=== PATIENT | male | born 1985 | race Caucasian/White ===

== ENCOUNTER 2017-10-11 18:28 | Emergency (ER) | payer OTHER ==
[2017-10-11 18:44] VITALS: BP 148/87; PULSE 80; TEMP 97.8; BMI 45.8
--- NOTE | 2017-10-11 18:56 | PDOC ---
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 Patient states he has been noncompliant with his Synthroid medication 1 month due to health insurance reasons. Timing/Duration: reports: other (x2d) Past History - Past Medical History Allergies/Adverse Reactions: Allergies Allergy/AdvReac Type Severity Reaction Status Date / Time No Known Allergies Allergy Verified 10/11/17 18:41 Home Medications: Ambulatory Orders NK [No Known Home Medication] 10/11/17 COPD: No HTN: Yes (border line) Thyroid Disease: Yes - Surgical History Appendectomy: Yes - Suicide/Smoking/Psychosocial Hx Smoking History: Never smoked Have you smoked in the past 12 months: No Information on smoking cessation initiated: No Hx Alcohol Use: No Drug/Substance Use Hx: No Substance Use Type: None Review of Systems - Review of Systems Able to Perform ROS?: Yes Comments:: 10/11/17 19:01 CONSTITUTIONAL: +generalized malaise Absent: fever, chills, diaphoresis, malaise, loss of appetite HEENT: Absent: rhinorrhea, nasal congestion, throat pain, throat swelling, difficulty swallowing, mouth swelling, ear pain, eye pain, visual Changes CARDIOVASCULAR: Absent: chest pain, loss of consciousness, palpitations, irregular heart rate, peripheral edema RESPIRATORY: Absent: cough, shortness of breath, dyspnea with exertion, orthopnea, wheezing, stridor, hemoptysis GASTROINTESTINAL: Absent: abdominal pain, abdominal distension, nausea, vomiting, diarrhea, constipation, melena, hematochezia GENITOURINARY: Absent: dysuria, frequency, urgency, hesitancy, hematuria, flank pain, genital pain MUSCULOSKELETAL: Absent: myalgia, arthralgia, joint swelling SKIN: Absent: rash, itching, pallor HEMATOLOGIC/IMMUNOLOGIC: Absent: easy bleeding, easy bruising, lymphadenopathy, frequent infections ENDOCRINE: Absent: unexplained weight gain, unexplained weight loss, heat intolerance, cold intolerance NEUROLOGIC: Absent: headache, focal weakness or paresthesias, dizziness, unsteady gait, seizure, mental status changes, bladder or bowel incontinence Is the patient limited Marshallese proficient: No *Physical Exam - Vital Signs Last Vital Signs Temp Pulse Resp BP Pulse Ox 97.8 F 80 18 148/87 100 10/11/17 18:41 10/11/17 18:41 10/11/17 18:41 10/11/17 18:41 10/11/17 18:41 - Physical Exam Comments: 10/11/17 19:01 GENERAL: Well developed, well nourished. Awake and alert. No acute distress. HEENT: Normocephalic, atraumatic. PERRLA, EOMI. No conjunctival pallor. Sclera are non- icteric. Moist mucous membranes. Oropharynx is clear. NECK: Supple. Full ROM. No JVD. Carotid pulses 2+ and symmetric, without bruits. No thyromegaly. No lymphadenopathy. CARDIOVASCULAR: Regular rate and rhythm. No murmurs, rubs, or gallops. Distal pulses are 2+ and symmetric. PULMONARY: No evidence of respiratory distress. Lungs clear to auscultation bilaterally. No wheezing, rales or rhonchi. ABDOMINAL: Soft. Non-tender. Non-distended. No rebound or guarding. No organomegaly. Normoactive bowel sounds. MUSCULOSKELETAL Normal range of motion at all joints. No bony deformities or tenderness. No CVA tenderness. EXTREMITIES: No cyanosis. No clubbing. No edema. No calf tenderness. SKIN: Warm and dry. Normal capillary refill. No rashes. No jaundice. NEUROLOGICAL: Alert, awake, appropriate. Cranial nerves 2-12 intact. No deficits to light touch and temperature in face, upper extremities and lower extremities. No motor deficits in the in face, upper extremities and lower extremities. Normoreflexic in the upper and lower extremities. Normal speech. Toes are down- going bilaterally. Gait is normal without ataxia. PSYCHIATRIC: Cooperative. Good eye contact. Appropriate mood and affect. Progress Note - Progress Note Progress Note: 2041hrs: Called Dr. Elder Zhou/equipment installer.[phone] 8hrs: called Dr. Zhou/equipment installer Dr. Mcgill covering/ states give pt synthroid 200mcg daily. Repeat labs in 4 weeks Medical Decision Making - Medical Decision Making 10/11/17 20:30 32 yo c/o body aches. Tested + for Influenze B. Symptoms x3d. Supportive care. *DC/Admit/Observation/Transfer Diagnosis at time of Disposition: Cough, Influenza B Hypothyroidism Qualifiers: Hypothyroidism type: other Qualified Code(s): E03.8 - Other specified hypothyroidism - Discharge Dispostion Condition at time of disposition: Stable Admit: No - Referrals Referrals: Elder Zhou MD [Staff Physician] - Evan Wisdom MD [Staff Physician] - - Patient Instructions Printed Discharge Instructions: DI for Influenza -- Adult Additional Instructions: Rest Tylenol alternating with Motrin as needed for fever Increase fluids Follow up with your physician in 48 hours Follow up with equipment installer Return to the ER for severe/persistent/worsening symptoms YOUR TSH IS 106.0, YOU MUST FOLLOW UP WITH THE MUSHROOM SORTER GRADER/DR. ZHOU [phone] You have been prescribed Synthroid 200mcg 1 tablet daily. YOU MUST HAVE YOUR BLOOD WORK REPEATED IN 4 WEEKS - Post Discharge Activity Forms/Work/School Notes: Back to Work
--- NOTE | 2017-10-11 18:57 | PDOC ---
Rapid Medical Evaluation Chief Complaint: Cold Symptoms Time Seen by Provider: 10/11/17 18:48 Medical Evaluation: Allergies Allergy/AdvReac Type Severity Reaction Status Date / Time No Known Allergies Allergy Verified 10/11/17 18:41 Vital Signs Temp Pulse Resp BP Pulse Ox 97.8 F 80 18 148/87 100 10/11/17 18:41 10/11/17 18:41 10/11/17 18:41 10/11/17 18:41 10/11/17 18:41 10/11/17 18:55 Pt presents to the ED: cough, nasal congestion, myalgia Pt on exam: vss, cough Pt ordered for: influenza Pt to proced to the ED Discharge Disposition - Diagnosis Cough - Referrals - Patient Instructions - Post Discharge Activity
[2017-10-11 20:20] LABS: THYROXINE (T4) 1.1 ug/dl (4.5-12.1)
[2017-10-11] MEDS ORDERED: LEVOTHYROXINE NA 200 MCG TABLET PO ONE (21:18)
== END 2017-10-11 21:38 | disposition home or self-care (01) ==
LOC: JERFT 18:28
DX: J10.1 Influenza due to other identified influenza virus with other respiratory manifestations (principal); E03.8 Other specified hypothyroidism
CPT/HCPCS: 36415; 84436; 84443; 87804; 99281-25

== ENCOUNTER 2018-01-13 00:57 | Emergency (ER) | payer OTHER ==
[2018-01-13 02:14] VITALS: BP 150/90; PULSE 96; TEMP 98.3; BMI 46.0
--- NOTE | 2018-01-13 02:35 | PDOC ---
History of Present Illness - General Chief Complaint: Wound Stated Complaint: ABSCESS Time Seen by Provider: 01/13/18 02:31 - History of Present Illness Initial Comments: 01/13/18 03:08 32 year old male with right upper thigh redness swelling and pain. unsure of bug bite to the site. no fluctuant mass noted. denies fever/ chills. no streaking noted. Past History - Past Medical History Allergies/Adverse Reactions: Allergies Allergy/AdvReac Type Severity Reaction Status Date / Time No Known Allergies Allergy Verified 01/13/18 02:05 Home Medications: Ambulatory Orders Levothyroxine Sodium [Synthroid] 200 mcg PO DAILY #30 tablet 10/11/17 Cephalexin Monohydrate [Keflex -] 500 mg PO Q8H #30 capsule 01/13/18 Sulfamethoxazole/Trimethoprim [Bactrim Ds -] 1 tab PO BID #20 tablet 01/13/18 COPD: No HTN: Yes (border line) Thyroid Disease: Yes (hypo) - Surgical History Appendectomy: Yes - Suicide/Smoking/Psychosocial Hx Smoking History: Never smoked Have you smoked in the past 12 months: No Hx Alcohol Use: No Drug/Substance Use Hx: No Substance Use Type: None Review of Systems - Review of Systems Able to Perform ROS?: Yes Is the patient limited Croatian proficient: No Constitutional: No: Symptoms Reported, See HPI, Chills, Diaphoresis, Fever, Loss of Appetite, Malaise, Night Sweats, Weakness, Weight Stable, Unintentional Wgt. Loss, Unexplained wgt Loss, Other Integumentary: Yes: Erythema *Physical Exam - Vital Signs Last Vital Signs Temp Pulse Resp BP Pulse Ox 98.3 F 96 H 20 150/90 97 01/13/18 02:04 01/13/18 02:04 01/13/18 02:04 01/13/18 02:04 01/13/18 02:04 - Physical Exam General Appearance: Yes: Appropriately Dressed Extremity: positive: Swelling, Erythema, Other (right thigh erythema, tenderness , warm to touch no streaking noted. no Lymphadenopathy) *DC/Admit/Observation/Transfer Diagnosis at time of Disposition: Cellulitis and abscess of right leg - Discharge Dispostion Disposition: HOME - Prescriptions Prescriptions: Cephalexin Monohydrate [Keflex -] 500 mg PO Q8H #30 capsule Sulfamethoxazole/Trimethoprim [Bactrim Ds -] 1 tab PO BID #20 tablet - Referrals Referrals: Alen Sow MD [Primary Care Provider] - - Patient Instructions Printed Discharge Instructions: DI for Wound Infection Additional Instructions: apply warm compress to the Area take Cephalexin and Bactrim as prescribed, follow up with your doctor as soon as possible. - Post Discharge Activity Forms/Work/School Notes: Back to Work
[2018-01-13] MEDS ORDERED: SULFAMETHOXAZOLE/TRIMETHOPRIM 800MG/160MG D.S. TABLET PO ONE (02:49)
[2018-01-13] MEDS ORDERED: CEPHALEXIN MONOHYDRATE 500 MG CAPSULE (UD) PO ONE (02:49)
[2018-01-13] MEDS ORDERED: CEPHALEXIN MONOHYDRATE 250 MG CAPSULE (FP) ONE (03:17)
[2018-01-13] MEDS ORDERED: SULFAMETHOXAZOLE/TRIMETHOPRIM 800MG/160MG D.S. TABLET ONE (03:17)
== END 2018-01-13 03:29 | disposition home or self-care (01) ==
LOC: JER 00:57
DX: L03.115 Cellulitis of right lower limb (principal); I10 Essential (primary) hypertension; E03.9 Hypothyroidism, unspecified
CPT/HCPCS: 99282-25

== ENCOUNTER 2018-01-16 20:24 | Emergency (ER) | payer OTHER ==
[2018-01-16 20:35] VITALS: BP 181/111; PULSE 88; TEMP 98.1; BMI 50.3
--- NOTE | 2018-01-16 20:36 | PDOC ---
Rapid Medical Evaluation Chief Complaint: Wound Time Seen by Provider: 01/16/18 20:31 Medical Evaluation: Allergies Allergy/AdvReac Type Severity Reaction Status Date / Time No Known Allergies Allergy Verified 01/16/18 20:32 01/16/18 20:35 The patient presents with a chief complaint of: abscess I have performed a brief in-person evaluation of this patient. Pertinent physical exam findings: vss, stable I have ordered the following: percocet The patient will proceed to the ED for further evaluation. Discharge Disposition - Referrals Referrals: Alen Sow MD [Primary Care Provider] - - Patient Instructions - Post Discharge Activity
[2018-01-16] MEDS ORDERED: LIDOCAINE HCL 1%, 10 MG/ML (20ML VIAL) ONE (22:04)
--- NOTE | 2018-01-16 22:28 | PDOC ---
History of Present Illness - General Chief Complaint: Wound Stated Complaint: CELLULITIS Time Seen by Provider: 01/16/18 20:31 History Source: Patient Exam Limitations: No Limitations - History of Present Illness Initial Comments: 01/16/18 22:22 This is a 32-year-old male with past medical history of thyroid CA and hypothyroidism who presents to the emergency department with right posterior thigh cellulitis and abscess. Patient was seen and evaluated here on January 13 and was prescribed Keflex and Bactrim for the cellulitis. He states the redness has improved but had a noticed there was some drainage from the site. He days denies any fevers, chills, redness or streaking to the area. Past History - Past Medical History Allergies/Adverse Reactions: Allergies Allergy/AdvReac Type Severity Reaction Status Date / Time No Known Allergies Allergy Verified 01/16/18 20:32 Home Medications: Ambulatory Orders Levothyroxine Sodium [Synthroid] 200 mcg PO DAILY #30 tablet 10/11/17 Cephalexin Monohydrate [Keflex -] 500 mg PO Q8H #30 capsule 01/13/18 Sulfamethoxazole/Trimethoprim [Bactrim Ds -] 1 tab PO BID #20 tablet 01/13/18 COPD: No HTN: Yes (border line) Thyroid Disease: Yes - Surgical History Appendectomy: Yes - Suicide/Smoking/Psychosocial Hx Smoking History: Never smoked Have you smoked in the past 12 months: No Hx Alcohol Use: No Drug/Substance Use Hx: No Substance Use Type: None Review of Systems - Review of Systems Able to Perform ROS?: Yes Is the patient limited Libyan proficient: No Constitutional: No: Symptoms Reported HEENTM: No: Symptoms Reported Respiratory: No: Symptoms reported Cardiac (ROS): No: Symptoms Reported ABD/GI: No: Symptoms Reported : No: Symptoms Reported Musculoskeletal: No: Symptoms Reported Integumentary: Yes: Symptoms Reported Neurological: No: Symptoms reported *Physical Exam - Vital Signs Last Vital Signs Temp Pulse Resp BP Pulse Ox 98.1 F 88 18 181/111 99 01/16/18 20:32 01/16/18 20:32 01/16/18 20:32 01/16/18 20:32 01/16/18 20:32 - Physical Exam General Appearance: Yes: Appropriately Dressed. No: Apparent Distress HEENT: positive: Normal ENT Inspection Neck: positive: Trachea midline, Supple Respiratory/Chest: positive: Lungs Clear, Normal Breath Sounds. negative: Respiratory Distress, Accessory Muscle Use Cardiovascular: positive: Regular Rhythm, Regular Rate. negative: Murmur Gastrointestinal/Abdominal: positive: Normal Bowel Sounds, Soft, Other (obese). negative: Tender Musculoskeletal: positive: Normal Inspection. negative: CVA Tenderness Extremity: positive: Erythema ([id number] ovoid area ofma noted to the superior posterior right thigh) Integumentary: positive: Erythema ([id number] ovoid area of erythema noted to the superior posterior right thigh. no fluctuance present.) Neurologic: positive: Alert, Normal Response Medical Decision Making - Medical Decision Making 01/16/18 22:25 A/P: 32-year-old male with history of very cancer and hypothyroidism with saline recent abscess to posterior right thigh 15 cm x 8 cm ovoid area of erythema to the superior aspect of the posterior thigh. No fluctuance present. Circular area present with green-colored lesion towards the center Able to express minimal amounts of pus from area. Cellulitis of thigh Culture wound drainage Skin marker used to outline area of erythema Patient instructed to return to emergency Department in 2 days for reevaluation of cellulitis and abscess Patient instructed to return to emergency room for any signs of systemic infection Continue current antibiotics and pain management regimen *DC/Admit/Observation/Transfer Diagnosis at time of Disposition: Cellulitis and abscess of right leg - Discharge Dispostion Disposition: HOME Condition at time of disposition: Stable Admit: No - Referrals Referrals: Alen Sow MD [Primary Care Provider] - - Patient Instructions Printed Discharge Instructions: DI for Wound Infection Additional Instructions: Continue applying warm compresses to affected area. Continue taking previously prescribed antibiotics. A wound culture was collected. We will have results within 2 days. Please follow-up in this emergency Department in 2 days for reevaluation of your won't Take Tylenol or Motrin as needed for fever and/or pain. Follow manufacturers instructions for appropriate dosage. - Post Discharge Activity
== END 2018-01-16 22:23 | disposition home or self-care (01) ==
LOC: JERFT 20:24
PROC: 0J9L0ZZ Drainage of Right Upper Leg Subcutaneous Tissue and Fascia, Open Approach (ICD-10-PCS; principal; 2018-01-16)
DX: L03.115 Cellulitis of right lower limb (principal); Z85.850 Personal history of malignant neoplasm of thyroid; E89.0 Postprocedural hypothyroidism
CPT/HCPCS: 10060; 87070; 87186; 87205; 99281-25

== ENCOUNTER 2018-01-18 19:15 | Emergency (ER) | payer OTHER ==
--- NOTE | 2018-01-18 19:22 | PDOC ---
Rapid Medical Evaluation Time Seen by Provider: 01/18/18 19:21 Medical Evaluation: Allergies Allergy/AdvReac Type Severity Reaction Status Date / Time No Known Allergies Allergy Verified 01/16/18 20:32 I have performed a brief in-person evaluation of this patient. The patient presents with a chief complaint of: wound check Pertinent physical exam findings: right posterior thigh wound. patient looks well. No fever I have ordered the following: nothing. The patient will proceed to the ED for further evaluation.
[2018-01-18 19:25] VITALS: BP 150/90; PULSE 76; TEMP 98.7; BMI 45.1
--- NOTE | 2018-01-18 19:55 | PDOC ---
Suture Removal/Wound Check HPI - History of Present Illness Chief Complaint: Revisit,Wound Recheck Stated Complaint: REEVALUATION Time Seen by Provider: 01/18/18 19:21 History Source: Yes: Patient Exam Limitations: Yes: No Limitations [place] [facility] [place] [facility] [place] ED Treatment Type of procedure performed on last visit: Yes: I&D of Abscess Past History - Travel Traveled outside of the country in the last 30 days: No Close contact w/someone who was outside of country & ill: No - Past Medical History Allergies/Adverse Reactions: Allergies Allergy/AdvReac Type Severity Reaction Status Date / Time No Known Allergies Allergy Verified 01/16/18 20:32 Home Medications: Ambulatory Orders Levothyroxine Sodium [Synthroid] 200 mcg PO DAILY #30 tablet 10/11/17 Mupirocin Ointment [Bactroban 2% Ointment -] 1 applic TP BID #1 tube 01/18/18 COPD: No HTN: Yes (border line) Thyroid Disease: Yes - Surgical History Appendectomy: Yes - Suicide/Smoking/Psychosocial Hx Smoking History: Never smoked Have you smoked in the past 12 months: No Hx Alcohol Use: No Drug/Substance Use Hx: No Substance Use Type: None Suture Removal/Wound Check PE - Physical Exam Laceration/Wound Check Symptoms: reports: Redness, Improved (Redness is significantly diminished from the previously marked area. Patient now with approximately 5 x 4 cm ovoid erythema. Dry skin also surrounds the area of erythema. There is a center approximately 1 cm around in the center of the ovoid erythema open and draining at this time.) Current Severity Level: Mild Location of Laceration/Wound: right: Thigh (posterior thigh) *Review of Systems - Review of Systems Constitutional: No: Chills, Fever, Weakness ABD/GI: No: Diarrhea, Nausea, Vomiting Integumentary: Yes: Dryness (R posterior upper leg), Erythema (R posterior upper leg), Pruritus (R posterior upper leg), Other (drainage from the R upper posterior leg.) Medical Decision Making - Medical Decision Making 01/18/18 22:56 Patient is a 32-year-old male who presents the emergency department today for a wound check of his abscess. Patient is currently taking Bactrim and Keflex with results. The cellulitis is massively improved since last visit now measuring approximately 5 x 4 cm in ovoid shape. The center of the ovoid shape is still open and draining. Tender to the touch however pain is much improved. The ovoid area red and chapped. We'll prescribe mupirocin at this time to prevent infection and to soothe the dry skin. Patient has a follow-up with his primary care doctor tomorrow which he is instructed to keep. Return precautions given. Patient understands all discharge instructions and all questions were answered. *DC/Admit/Observation/Transfer Diagnosis at time of Disposition: Cellulitis and abscess of right leg - Discharge Dispostion Disposition: HOME Condition at time of disposition: Stable Admit: No - Prescriptions Prescriptions: Mupirocin Ointment [Bactroban 2% Ointment -] 1 applic TP BID #1 tube - Referrals Referrals: Alen Sow MD [Primary Care Provider] - - Patient Instructions Printed Discharge Instructions: DI for Wound Infection Additional Instructions: You have cellulitis. This is a skin infection. The infection is much improved since your visit on 01/16/18. Please continue to take the Bactrim and Keflex twice a day for one week. Please take all the antibiotics even if you feel better. Apply the mupirocin to the chapped area of skin. Avoid putting it on the open draining area. You may use warm water soaks to the area. Please do this approximately 4-5 times a day. Please avoid shaving the skin around the area of redness. You may take Tylenol or Motrin as needed for pain. Please follow up with your primary care doctor tomorrow as scheduled Return to the emergency department if you have worsening redness, fevers, increasing pain, or have any changes in your symptoms. - Post Discharge Activity
== END 2018-01-18 20:24 | disposition home or self-care (01) ==
LOC: JERFT 19:15
DX: Z48.01 Encounter for change or removal of surgical wound dressing (principal)
CPT/HCPCS: 99281-25

== ENCOUNTER 2018-05-06 17:42 | Emergency (ER) | payer OTHER ==
[2018-05-06 18:02] VITALS: TEMP 98.4; BMI 200.1
--- NOTE | 2018-05-06 19:27 | PDOC ---
History of Present Illness - General Chief Complaint: Blood Sugar Problem Stated Complaint: BLOOD PRESSURE - History of Present Illness Initial Comments: 33 year old male with PMH of HTN (currently unmedicated) and hypothyroidism presenting with bilateral infrapectoral chest pain, lightheadedness,a nd elevated blood pressures for the past week. States that he had HTN a few years prior but eventually discontinued his medication because of pressure normalization after some weight loss. He admits to some infrapectoral chest pain on Tuesday that came on while sitting and was a non-pleuritic, non- exertional, non-radiating pressure, that did not co-present with nausea, vomiting, diarrhea, constipation, headache, SOB, or other symptoms. His pressures over the past week have been in the 170s. He has had occasional lightheadedness while working particularly when lifting boxes. Denies SOB, nausea, vomiting, diarrhea, headache, FND, visual symptoms or other issues. 05/06/18 20:48 Past History - Past Medical History Allergies/Adverse Reactions: Allergies Allergy/AdvReac Type Severity Reaction Status Date / Time No Known Allergies Allergy Verified 01/16/18 20:32 Home Medications: Ambulatory Orders Levothyroxine [Synthroid -] 250 mcg PO DAILY 05/06/18 COPD: No Diabetes: Yes HTN: Yes Thyroid Disease: Yes - Surgical History Appendectomy: Yes - Suicide/Smoking/Psychosocial Hx Smoking History: Never smoked Have you smoked in the past 12 months: No Information on smoking cessation initiated: No Hx Alcohol Use: No Drug/Substance Use Hx: No Substance Use Type: None Review of Systems - Review of Systems Constitutional: No: Chills, Diaphoresis, Fever, Loss of Appetite HEENTM: No: Blurred Vision Respiratory: No: Orthopnea, Shortness of Breath Cardiac (ROS): Yes: Chest Pain, Lightheadedness, Chest Tightness. No: Edema, Irregular Heart Rate, Palpitations, Syncope ABD/GI: No: Diarrhea, Nausea, Poor Fluid Intake, Vomiting : No: Burning, Dysuria, Discharge, Frequency Integumentary: No: Bruising, Change in Color, Change in Hair/Nails, Lesions Neurological: No: Headache, Numbness Psychiatric: No: Anxiety, Depression Hematologic/Lymphatic: No: Anemia, Blood Clots *Physical Exam - Vital Signs Last Vital Signs Temp Pulse Resp BP Pulse Ox 98.4 F 82 18 160/98 100 05/06/18 17:59 05/06/18 17:59 05/06/18 17:59 05/06/18 17:59 05/06/18 17:59 - Physical Exam General Appearance: Yes: Nourished, Appropriately Dressed. No: Apparent Distress HEENT: positive: EOMI, DIANNE, Normal ENT Inspection, Normal Voice Neck: positive: Trachea midline, Normal Thyroid, Supple. negative: Tender, Rigid Respiratory/Chest: positive: Lungs Clear, Normal Breath Sounds. negative: Chest Tender, Respiratory Distress, Accessory Muscle Use Cardiovascular: positive: Regular Rhythm, Regular Rate Gastrointestinal/Abdominal: positive: Normal Bowel Sounds, Flat, Soft. negative : Tender Lymphatic: negative: Adenopathy, Tenderness Musculoskeletal: positive: Normal Inspection. negative: Decreased Range of Motion, Muscle Spasm Extremity: positive: Normal Capillary Refill, Normal Inspection, Normal Range of Motion. 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 Likely non-acs. Heart Score 1, labs WNL , and EKG WNL (Rate 86, LA 164, QRS 108, [id number], no ST/T wave changes). Will DC with follow up with PCP for anti-htn med re-initation. Repeat pressures was 138/ 90. 05/06/18 21:03 *DC/Admit/Observation/Transfer Diagnosis at time of Disposition: HTN (hypertension) Qualifiers: Hypertension type: unspecified Qualified Code(s): I10 - Essential (primary) hypertension Chest pain Qualifiers: Chest pain type: unspecified Qualified Code(s): R07.9 - Chest pain, unspecified - Discharge Dispostion Disposition: HOME Condition at time of disposition: Improved Decision to Admit order: No - Referrals Referrals: Liv Gaona MD [Primary Care Provider] - - Patient Instructions Printed Discharge Instructions: Hypertension (Alternative Therapy) Additional Instructions: Please follow up with Dr. Cruz early next week to restart your blood pressure medication. Please try to stay hydrated and get a good amount of sleep. Please return to the ED if you have new or worsening symptoms. - Post Discharge Activity
[2018-05-06 20:00] LABS: BASO % 0.8 % (0-2.0); EOS % 3.7 % (0-4.5); HEMATOCRIT 40.7 % (35.4-49); HEMOGLOBIN 13.7 GM/dL (11.7-16.9); LYMPH % 21.1 % (8-40); MCH 27.4 pg (25.7-33.7); MCHC 33.6 g/dl (32.0-35.9); MEAN CELL VOLUME 81.6 fl (80-96); MEAN PLT VOLUME 8.9 fl (7.5-11.1); MONO % 8.1 % (3.8-10.2); NEUT % 66.3 % (42.8-82.8); PLATELET COUNT 242 K/MM3 (134-434); RBC 4.99 M/mm3 (4.00-5.60); RDW 14.2 % (11.9-15.9)
--- NOTE | 2018-05-06 20:22 | PDOC ---
Attending Attestation - HPI HPI: 05/06/18 21:23 Jaswinder Marcus 33 YOM with h/o HTN on enalapril presenting with HTN, CP on Tuesday, SBP 160-170s, a/w dizziness blurry vision /CP. Patient reports experiencing bilateral chest pain that he states began x1 week ago. He reports being at work when he began to experience chest pain that he describes as a pressured chest pain, as well as associated head pain, dizziness and blurred vision. Patient reports taking his blood pressure while at work when symptoms began and found it to be 173/122. He states taking BP a secondary time after 1 hour of rest and found it to be 175/120, prompting him to come into the ED for further evaluation. Patient reports being on Medication for his HTN, but states he was taken off x2 years ago after his BP was controlled and told to monitor it while pressure cuff. Denies shortness of breath, coughing. Denies fevers, chills. Denies recent out of state travelling. Denies diarrhea, constipation, abdominal pain. Denies weakness or paresthesias. Denies any other symptoms. Allergies: None Social history: Father heart attack: 74. No smoking. No alcohol. No illicit drugs. Surgical history: Appendectomy PMD: Dr. Liv Meyer - Physicial Exam PE: 05/06/18 21:23 General: Well appearing, awake and alert, NAD. HEENT: NCAT, PERRL, EOMI, clear conjunctiva, anicteric, moist mucous membranes , clear oropharynx, no oral lesions.. Neck: neck supple, FROM, no JVD Chest: no chest wall tenderness Lungs: CTAB, normal and even respirations, no respiratory distress Heart: RRR, no murmurs, 2+ peripheral pulses throughout, no peripheral edema Abdomen: soft, NTND, obese abdomen Back: nontender, normal inspection and ROM MSK: no edema, MILLER x4, ROM intact. No clubbing or cyanosis. normal bulk and tone. Neuro: alert, oriented appropriately; no focal neurologic deficits. SILT, 5/5 distal and prox strength in all extrem. Skin: warm and well perfused, cap refill <2 sec, normal color <Edward Escobedo - Last Filed: 05/06/18 21:23> - Resident Resident Name: Sky Brewer - ED Attending Attestation I have performed the following: I have examined & evaluated the patient, The case was reviewed & discussed with the resident, I agree w/resident's findings & plan - Medical Decision Making 05/06/18 21:17 33 YOM with h/o HTN and hypothyroidism presenting with symptomatic HTN, a/w intermittent CP since Tuesday; at home, he measured SBP 160-170s. He was at work today, bilateral chest pressure, nonradiating, a/w headache, blurry vision and dizziness, lasting 1 hour, nonexertional. he was at work in the kitchen, in warm environment. no syncope, sob, cough or respiratory distress, n/v/d, weakness or paresthesias. Chest pain HEART score 1 which denotes Low risk and probability for ACS, less than 1% risk for MACE at 30 days. Given risk factors including HTN and history. No tobacco use or early VT/CAD in family DDx includes symptomatic hypertension, ACS, chest pain NOS, costochondritis, GERD, pleurisy, anxiety, esophageal spasm. Low suspicion for pulmonary embolism or dissection. Vital signs reviewed, hypertensive 160/90, check labs for evidence of end organ damage. Labs unremarkable, trop negative x1 (one sufficient given duration and clinical history). CBC and CMP wnl, reassuring. BP downtrended and no evidence of end organ damage, no CT head indicated as no neuro deficits. EKG sinus rhythm at 85 bpm, isolated TWI in III, LAD, no ST segment elevations or depressions, normal intervals. no prior EKGs, to compare, but no contiguous lead changes or ischemia. BP down to 130/90 on repeat. Plan: call to PMD, restart anti hypertensive, previously on enalapril. Discharge home, I discussed the physical exam findings, ancillary test results and final diagnoses with the patient. I answered all of the patient's questions. The patient was satisfied with the care received and felt comfortable with the discharge plan and treatment plan. The patient will return to the Emergency Department with any new, persistent or worsening symptoms. f/u PCP, Dr. Meyer (called several times, no answer at office) with hypertension management, return precautions emphasized. 05/06/18 21:20 05/06/18 22:09 <Margaret Mary - Last Filed: 05/06/18 22:10> Heart Score/ECG Review - History History: Slightly suspicious - Electrocardiogram EKG: Normal - Age Age: </= 45 - Risk Factors Risk Factors Heart Score: Yes Hx Hypertension, Yes Hx Obesity Based on the list above the patient has:: 1-2 risk factors - Troponin Troponin: </= normal limit - Score Heart Score - Total: 1 - ECG Impressions Normal ECG: Yes Comment:: 05/06/18 21:20 EKG sinus rhythm at 85 bpm, isolated TWI in III, LAD, no ST segment elevations or depressions, normal intervals. no prior EKGs, to compare, but no contiguous lead changes or ischemia. <Margaret Mary - Last Filed: 05/06/18 22:10>
[2018-05-06 20:24] LABS: ALBUMIN 3.5 g/dl (3.4-5.0); ANION GAP 7 (8-16); BILIRUBIN,TOTAL 0.2 mg/dL (0.2-1.0); BLOOD UREA NITROGEN 13 mg/dL (7-18); CALCIUM 8.6 mg/dL (8.5-10.1); CHLORIDE 107 mmol/L (98-107); CO2 30 mmol/L (21-32); CREATININE 0.7 mg/dL (0.7-1.3); GLUCOSE,RANDOM 85 mg/dL (74-106); POTASSIUM 3.8 mmol/L (3.5-5.1); SGOT/AST 33 U/L (15-37); SGPT/ALT 62 U/L (12-78); SODIUM 144 mmol/L (136-145); TOT PROT 7.5 g/dl (6.4-8.2)
[2018-05-06 20:33] LABS: ALK PHOS 80 U/L (45-117)
[2018-05-06 21:15] VITALS: BP 139/90; PULSE 78
--- NOTE | 2018-05-07 15:20 | EKG ---
Test Reason : Blood Pressure : / mmHG Vent. Rate : 085 BPM Atrial Rate : 085 BPM P-R Int : 164 ms QRS Dur : 108 ms QT Int : 368 ms P-R-T Axes : 058 -22 016 degrees QTc Int : 437 ms NORMAL SINUS RHYTHM POSSIBLE LEFT ATRIAL ENLARGEMENT LEFT VENTRICULAR HYPERTROPHY ABNORMAL ECG NO PREVIOUS ECGS AVAILABLE Confirmed by MASSIMO MCNAIR MD ([id number]) on 05/07/2018 3:20:02 PM Referred By: Confirmed By:MASSIMO MCNAIR MD
== END 2018-05-06 21:19 | disposition home or self-care (01) ==
LOC: JER 17:42
DX: R07.9 Chest pain, unspecified (principal); I10 Essential (primary) hypertension; E03.9 Hypothyroidism, unspecified
CPT/HCPCS: 36415; 80053; 82550; 82553; 84439; 84443; 84484; 85025; 93005; 93010; 99283-25